=== PATIENT | male | born 1995 | race African-American/Black ===

== ENCOUNTER 2018-05-15 01:05 | Emergency (ER) | payer SELFPAY ==
[~2018-05-15] VITALS: Ht 182.9 cm; Wt 109.1 kg
[~2018-05-15 01:05] MED LIST: ABILIFY10 MG OR; PENICILLN VK500 MG OR; RITALIN20 MG OR
[2018-05-15] MEDS ORDERED: VOLTAREN - GENE75 MG PO (03:51)
[2018-05-15 04:23] VITALS: BP 157/66
== END 2018-05-15 04:28 | disposition home or self-care (01) | DRG 605 ==
LOC: ED 01:05
DX: S40.011A Contusion of right shoulder, initial encounter (principal); S90.02XA Contusion of left ankle, initial encounter; S20.211A Contusion of right front wall of thorax, initial encounter; S80.01XA Contusion of right knee, initial encounter; S90.32XA Contusion of left foot, initial encounter; S80.212A Abrasion, left knee, initial encounter; S90.512A Abrasion, left ankle, initial encounter; S80.812A Abrasion, left lower leg, initial encounter; S80.811A Abrasion, right lower leg, initial encounter; V86.56XA Driver of dirt bike or motor/cross bike injured in nontraffic accident, initial encounter; Y93.I9 Activity, other involving external motion; Y92.410 Unspecified street and highway as the place of occurrence of the external cause

== ENCOUNTER 2018-06-22 22:50 | Emergency (ER) | payer SELFPAY ==
[~2018-06-22] VITALS: Ht 182.9 cm; Wt 111.4 kg
[~2018-06-22 22:50] MED LIST changes: +VOLTAREN - GENE75 MG PO
[2018-06-22 23:33] LABS: HEMATOCRIT 41.2 % (39.0-50.0); IMMATURE GRANULOCYTES 0.3 % (0.0-5.0); MEAN CELL VOLUME 68.1 fL CALC (80.0-100.0); MEAN CORPUSCULAR HGB 21.5 pG CALC (26.0-32.0); MEAN CORPUSCULAR HGB CONC 31.6 g/L CALC (32.0-36.0); NEUT# 5.73 thou/uL (1.82-7.42); RED BLOOD COUNT 6.05 mill/uL (4.70-6.10); RED CELL DISTRI WIDTH 14.1 % (11.5-15.5)
[2018-06-23 00:05] VITALS: BP 134/89
== END 2018-06-23 00:08 | disposition home or self-care (01) | DRG 866 ==
LOC: ED 22:50
PROVIDERS: Family Medicine
DX: B34.9 Viral infection, unspecified (principal); R50.9 Fever, unspecified; M79.10 Myalgia, unspecified site

== ENCOUNTER 2018-06-27 12:18 | Emergency (ER) | payer SELFPAY ==
[~2018-06-27] VITALS: Ht 182.9 cm; Wt 120.0 kg
[2018-06-27 12:50] VITALS: BP 121/69
== END 2018-06-27 12:50 | disposition home or self-care (01) | DRG 605 ==
LOC: ED 12:18
DX: S90.31XA Contusion of right foot, initial encounter (principal); S93.601A Unspecified sprain of right foot, initial encounter; W50.0XXA Accidental hit or strike by another person, initial encounter; X50.0XXA Overexertion from strenuous movement or load, initial encounter; Y93.67 Activity, basketball

== ENCOUNTER 2018-11-22 21:50 | Emergency (ER) | payer SELFPAY ==
[~2018-11-22] VITALS: Ht 177.8 cm; Wt 105.0 kg
[2018-11-22] MEDS ORDERED: GENTAMICIN SULF5 ML OS (23:26)
[2018-11-22] MEDS ORDERED: (None)3.5 GM OS (23:26)
[2018-11-22 23:45] VITALS: BP 138/77
== END 2018-11-22 23:47 | disposition home or self-care (01) | DRG 125 ==
LOC: ED 21:50
DX: H10.9 Unspecified conjunctivitis (principal); S05.92XA Unspecified injury of left eye and orbit, initial encounter; I10 Essential (primary) hypertension; X58.XXXA Exposure to other specified factors, initial encounter